=== PATIENT | male | born 1970 | race Caucasian/White ===

== ENCOUNTER 2020-06-27 10:12 | Outpatient (CLI) | payer OTHER ==
--- NOTE | 2020-06-27 11:00 | ULT ---
US Gallbladder RUQ History: Abdominal pain Comparison: Abdomen pelvis CT December 2014 Findings: Real-time grayscale and color evaluation right upper quadrant of the abdomen was performed. Pancreas is not well seen. Aorta and IVC appear unremarkable although evaluation is limited Liver measures 15.1 cm in length. Common bile duct is normal measuring 5 mm. Gallbladder wall thickness is normal. No pericholecystic inflammation. No cholelithiasis. Sonographic Rodriguez sign is negative. Echogenic focus right lobe of the liver measures up to 5 cm in size likely corresponds to the known h epatic hemangioma. Hemangioma may have grown from at comparison exam. Diffuse hepatic steatosis. Portal vein is patent with antegrade flow. Right kidney measures 10.7 x 5.1 x 6.5 cm without mass, hydronephrosis or abnormal calcifications. Impression: 1. No cholelithiasis or cholecystitis. 2. Diffuse hepatic steatosis. 3. 5 cm mass posterior right lobe of the liver likely corresponding to the known hemangioma which is grown from 2015.
== END 2020-06-27 10:13 | disposition home or self-care (01) ==
LOC: BICULT 10:12
PROVIDERS: ATTEND Internal Medicine Gastroenterology
DX: R10.13 Epigastric pain (principal); K76.0 Fatty (change of) liver, not elsewhere classified
CPT/HCPCS: 76705